=== PATIENT | female | born 1975 | race Hispanic/Latino ===

== ENCOUNTER 2019-08-01 11:59 | Emergency (ER) | payer SELFPAY | END 2019-08-01 12:27 | disposition home or self-care (01) | LOC: BURERS 11:59 | DX: J11.1 Influenza due to unidentified influenza virus with other respiratory manifestations (principal); F17.210 Nicotine dependence, cigarettes, uncomplicated | CPT/HCPCS: 99283 ==

== ENCOUNTER 2020-05-26 21:46 | Emergency (ER) | payer SELFPAY | END 2020-05-26 23:06 | disposition home or self-care (01) | LOC: BURERS 21:46 | DX: L03.031 Cellulitis of right toe (principal); F17.210 Nicotine dependence, cigarettes, uncomplicated | CPT/HCPCS: 99283 ==

== ENCOUNTER 2020-05-26 22:55 | Inpatient (IN) | payer SELFPAY | END 2020-05-26 23:20 | disposition home or self-care (01) | DRG 603 | LOC: BURMED 22:55 | PROVIDERS: ADMIT Emergency Medicine; ATTEND Emergency Medicine | DX: L03.031 Cellulitis of right toe (principal); F17.210 Nicotine dependence, cigarettes, uncomplicated ==

== ENCOUNTER 2021-04-08 10:53 | Emergency (ER) | payer SELFPAY ==
[2021-04-09 08:27] LABS: SARS-CoV-2 PCR by NAA Not Detected (NotDetected)
== END 2021-04-08 12:02 | disposition home or self-care (01) ==
LOC: BURERS 10:53
DX: R05 Cough (principal); F17.210 Nicotine dependence, cigarettes, uncomplicated; Z20.822 Contact with and (suspected) exposure to COVID-19
CPT/HCPCS: 99284; U0003; U0005

== ENCOUNTER 2021-08-05 14:15 | Emergency (ER) | payer OTHER, SELFPAY | END 2021-08-05 14:35 | LOC: BURERS 14:15 | DX: Z53.21 Procedure and treatment not carried out due to patient leaving prior to being seen by health care provider (principal) ==

== ENCOUNTER 2021-09-22 13:27 | Emergency (ER) | payer SELFPAY | END 2021-09-22 14:38 | disposition home or self-care (01) | LOC: BURERS 13:27 | DX: J20.8 Acute bronchitis due to other specified organisms (principal); F17.210 Nicotine dependence, cigarettes, uncomplicated; Z86.16 Personal history of COVID-19 | CPT/HCPCS: 99284 ==

== ENCOUNTER 2021-11-07 17:41 | Emergency (ER) | payer OTHER, SELFPAY ==
[2021-11-07] MEDS ORDERED: HYDROcodone/Acetaminophen 5/325 mg Tablet ONE (18:12)
== END 2021-11-07 18:55 | disposition home or self-care (01) ==
LOC: BURERS 17:41
DX: S32.2XXA Fracture of coccyx, initial encounter for closed fracture (principal); F17.210 Nicotine dependence, cigarettes, uncomplicated; W01.0XXA Fall on same level from slipping, tripping and stumbling without subsequent striking against object, initial encounter
CPT/HCPCS: 72220

== ENCOUNTER 2022-02-18 09:18 | Emergency (ER) | payer OTHER, SELFPAY ==
[2022-02-18] MEDS ORDERED: Ibuprofen 800 MG TAB ONE (09:55)
== END 2022-02-18 10:20 | disposition home or self-care (01) ==
LOC: BURERS 09:18 → EEVIPCON 09:18 → BURERS 10:20
DX: S43.402A Unspecified sprain of left shoulder joint, initial encounter (principal); F17.210 Nicotine dependence, cigarettes, uncomplicated; Y04.8XXA Assault by other bodily force, initial encounter

== ENCOUNTER 2022-08-11 13:03 | Emergency (ER) | payer SELFPAY | END 2022-08-11 14:34 | disposition home or self-care (01) | LOC: BURERS 13:03 | DX: S63.502A Unspecified sprain of left wrist, initial encounter (principal); F17.210 Nicotine dependence, cigarettes, uncomplicated; X50.9XXA Other and unspecified overexertion or strenuous movements or postures, initial encounter ==

== ENCOUNTER 2025-04-15 19:37 | Emergency (ER) | payer OTHER ==
[2025-04-15] MEDS ORDERED: Ketorolac Tromethamine 30 MG (1 mL) VIAL ONE (20:27)
[2025-04-15] MEDS ORDERED: predniSONE 20 MG TAB ONE (20:27)
== END 2025-04-15 20:50 | disposition home or self-care (01) ==
LOC: BURERS 19:37
DX: S39.012A Strain of muscle, fascia and tendon of lower back, initial encounter (principal); F17.210 Nicotine dependence, cigarettes, uncomplicated; X58.XXXA Exposure to other specified factors, initial encounter
CPT/HCPCS: 96372; 99283; J1885; J7512